=== PATIENT | female | born 1960 | race Caucasian/White ===

== ENCOUNTER → 2017-02-02 | Outpatient (CLI) | payer BC ==
--- NOTE | ~2017-02-02 | MY11 ---
[facility] A Service of [facility] RADIOLOGY TEXT RESULTS PATIENT: MIKY POOLE LOCATION: [facility] : 56 UNIT #: [id number] AGE: [address]: Ravi Jorgensen MD SEX: F ORDER DR: [id number] [facility]. [place], [place] [address] [id number] O MR#: [id number] Acc #: [id number] NAME: MIKY POOLE : 1960 SEX: F STUDY DATE/TIME: 02/02/2017 16:19 UNIT: [facility] ROOM: STUDY DESCRIPTION: MY Mammogram Screening Dig Sunny Attending Physician: Ravi Jorgensen M.D. Ordering Physician: Ravi Jorgensen M.D. Primary Care Physician: Ravi Jorgensen M.D. MEDICAL IMAGING REPORT This report is preliminary unless electronic signature is present EXAM Bilateral digital screening mammogram with CAD 02/02/2017 INDICATIONS 56-year-old female for routine screening. No reported problems. AND no personal history of breast cancer. Family history positive in a maternal aunt and a cousin. TECHNIQUE CC and MLO views of the breasts were obtained and reviewed with an FDA-approved CAD device. COMPARISON 01/30/2016, 01/17/2016, 11/26/2014, 11/21/2013. FINDINGS Breast parenchyma is composed of scattered fibroglandular densities. The pattern is unchanged. There is no new dominant nodule, mass, or suspicious cluster of microcalcifications. Benign intramammary node in the left breast stable. IMPRESSION Benign screening mammogram; 1-year followup recommended. Patients over the age of 40 are entered into a reminder system with target due date for the next mammogram. A result letter will also be sent to the patient. BIRADS: 2 Benign finding. Dictated by... Jose Fernandez M.D. [facility] A Service [facility] RADIOLOGY TEXT RESULTS PATIENT: MIKY POOLE LOCATION: [facility] : 56 UNIT #: [id number] AGE: [address]: Ravi Jorgensen MD SEX: F ORDER DR: THIS IS AN ELECTRONICALLY VERIFIED REPORT Jose Fernandez M.D. at 02/04/2017 5:34 PM Alli TD: 02/03/2017 13:48 JOB #: [id number] MEDICAL IMAGING REPORT Page 1 of 1 COPY
== END | disposition home or self-care (01) ==
LOC: CWCC 16:12
DX: Z12.31 Encounter for screening mammogram for malignant neoplasm of breast (principal); Z80.3 Family history of malignant neoplasm of breast
CPT/HCPCS: G0202